=== PATIENT | female | born 1980 | race African-American/Black ===

== ENCOUNTER 2020-10-20 09:56 | Observation (INO) ==
[2020-10-20] MEDS ORDERED: LIDOCAINE 1% 50 ML VIAL ONE (16:34)
[2020-10-20] MEDS ORDERED: PROMETHAZINE INJ 25 MG in SODIUM CHLORIDE 0.9% 50 ML IV ONE (16:53)
[2020-10-20] MEDS ORDERED: MEPERIDINE 50 MG/1 ML VIAL ONE (16:57)
[2020-10-20] MEDS ORDERED: PROMETHAZINE 25 MG/1 ML VIAL ONE (16:58)
[2020-10-20] MEDS ORDERED: cefTRIAXone 1,000 MG in SODIUM CHLORIDE 0.9% 100 ML IV ONE (17:31)
[2020-10-20] MEDS ORDERED: MEPERIDINE 50 MG/1 ML VIAL IV ONE (18:30)
[2020-10-20 18:53] LABS: Basophils % 0.2 % (0.0-0.8); Eosinophils # 0.2 10*3/uL (0.0-0.87); Eosinophils % 3.6 % (0.00-10.9); Hematocrit 36.8 VOL% (35.7-47.0); Hemoglobin 12.4 GM/DL (12.0-16.0); Immature Granulocytes % 0.2 %; Immature Granulocytes Absolute 0.01 #; Lymphocytes # 1.6 10*3/uL (1.4-4.0); Mean Corpuscular HGB Conc 33.7 GM/DL (32-36); Mean Corpuscular Volume 87.6 FL (87-102); Mean Platelet Volume 9.4 FL (9.6-12.0); Monocytes % 6.1 % (1.7-12.7); Neutrophils % 60.9 % (38.7-73.9); Platelet Count 270 T/CUMM (130-400); Red Cell Distribution Width 12.5 % (9.3-17.3); White Blood Count 5.6 T/CUMM (4-12)
[2020-10-21 01:46] VITALS: BP 128/85
== END 2020-10-20 20:43 | disposition home or self-care (01) ==
LOC: N.OB
PROVIDERS: ADMIT Obstetrics & Gynecology; ATTEND Obstetrics & Gynecology